=== PATIENT | female | born 1985 ===

== ENCOUNTER 2016-10-19 09:24 | Emergency (ER) | payer SELFPAY ==
[2016-10-19 09:49] VITALS: BP 96/53; PULSE 61; TEMP 98.3; O2SAT 100
--- NOTE | 2016-10-19 10:08 | ED PDOC ---
HPI: Female Pain Time Seen by Provider: 10/19/16 09:39 Chief Complaint (Nursing): Female Genitourinary History Per: Patient (LLq abd pain x 4 days. Deniues vaginal bleeding. [place] [facility] [place] unable to see with Beta HCG 810) Onset/Duration Of Symptoms: Days (4) Current Symptoms Are (Timing): Still Present Severity: Mild Pain Scale Rating Of: 2 Quality Of Discomfort: Aching Abnormal Vaginal Bleeding: No : 8 Para: 5 Miscarriage: 2 (h/o ectopic right side x2) Past Medical History Vital Signs: Last Vital Signs Temp 98.3 F 10/19/16 09:45 Pulse 61 10/19/16 09:45 Resp 18 10/19/16 09:45 BP 96/53 L 10/19/16 09:45 Pulse Ox 100 10/19/16 09:45 - Medical History PMH: No Chronic Diseases - Family History Family History: States: Unknown Family Hx - Allergies Allergies/Adverse Reactions: Allergies Allergy/AdvReac Type Severity Reaction Status Date / Time Penicillins Allergy RASH Verified 10/19/16 09:45 Review of Systems Gastrointestinal: Positive for: Abdominal Pain Genitourinary Female: Negative for: Vaginal Bleeding Physical Exam - Physical Exam Appears: Positive for: Non-toxic, No Acute Distress Gastrointestinal/Abdominal: Positive for: Tenderness (LLQ no masses) Pelvic Exam: Positive for: External Exam Normal, No Masses. Negative for: Active Bleeding, Tender Adnexa - ECG O2 Sat by Pulse Oximetry: 100 Medical Decision Making Medical Decision Making: Unable to find lab work. Pt upset and does not wish to have blood redrawn Advised to return to ED if increased pain or bleeding Disposition - Clinical Impression Clinical Impression: Threatened miscarriage - Patient ED Disposition Is Patient to be Admitted: No - Disposition [facility] Disposition: Routine/Home Disposition Time: 13:47 Condition: FAIR Instructions: Threatened Miscarriage (ED)
[2016-10-19 10:20] VITALS: RESP 20
--- NOTE | 2016-10-19 13:38 | US ---
PROCEDURE: Pelvic ultrasound dated 10/19/2016. HISTORY: r/o ectopic COMPARISON: No prior study available comparison. TECHNIQUE: Transabdominal/transvaginal sonographic evaluation of the pelvis performed. FINDINGS: The the uterus is anteverted measuring approximately 8.0 x 5.4 x 4.8 cm. Cervix measures approximately 3.2 cm periods small cervical nabothian cyst is present. There is small fluid collection within the endometrium on which could represent a gestational sac Measurements: Gestational sac: MSD = 0.4 cm = out of range Yolk sac: Not detected pole: Not detected Heart motion: Not detected While this could represent very early intrauterine gestation, the possibility ectopic not excluded. Followup serial serum beta HCG and serial pelvic ultrasound recommended to assess for development of viable intrauterine gestation versus ectopic . Right ovary measures 3.4 x 1.9 x 2.2 cm and exhibits arterial flow. Left ovary measures 1.6 x 2.2 x 1.1 cm and exhibits arterial flow. Small paraovarian cyst measuring 0.9 x 0.7 x 0.8 cm. IMPRESSION: Small fluid collection within the endometrial canal could represent early gestational sac too early to age however no yolk sac pole or heart motion detected. Rule out ectopic . Followup serial serum beta HCG and serial pelvic ultrasound recommended to assess for development of viable intrauterine gestation versus ectopic .
== END 2016-10-19 13:50 | disposition home or self-care (01) ==
LOC: H.ER 09:24
DX: O20.0 Threatened abortion (principal); Z88.0 Allergy status to penicillin